=== PATIENT | male | born 1965 | race American Indian/Alaskan Native ===

== ENCOUNTER 2018-08-16 17:26 | Emergency (ER) | payer OTHER ==
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
[2018-08-16 19:44] VITALS: BP 136/89
== END 2018-08-16 19:20 | disposition home or self-care (01) ==
LOC: ED 17:26
DX: Z76.5 Malingerer [conscious simulation] (principal); Z59.0 Homelessness; F17.200 Nicotine dependence, unspecified, uncomplicated
CPT/HCPCS: 99283

== ENCOUNTER 2019-02-17 00:18 | Emergency (ER) | payer SELFPAY ==
[2019-02-17] MEDS ORDERED: ASPIRIN 325 MG TAB PO ONE (00:40)
[2019-02-17 01:17] LABS: Hemoglobin 13.1 gm/dl (11.8-15.2); Mean Corpuscular HGB Conc 34 % (32-34); Mean Corpuscular Volume 90 fl (84-94); Platelet Count 314 K/mm3 (140-440); Red Blood Count 4.36 M/mm3 (3.65-5.03); Red Cell Distribution Width 17.1 % (13.2-15.2)
--- NOTE | 2019-02-17 01:19 | Emergency Department Report ---
ED Psych HPI - General Chief Complaint: Chest Pain Stated Complaint: CHEST PAIN Time Seen by Provider: 02/17/19 01:03 Source: patient, EMS Mode of arrival: Ambulatory - History of Present Illness Initial Comments: Mr. Reynaga is a 53 yo male without significant medical history who presents with chest pain and attempt to harm himself. He developed two episodes of chest pain sharp central which dropped in to his knees. The episodes lasted several seconds. NOw resolved spontaneously. The chest pain occurred while arguing with his . He and his are in the middle of a divorce. He initially went to the hospital to be evaluated for chest pain. However he was asked to leave the emergency department when he insisted on smoking in the bathroom. He went home and trying beer. He also attempted to harm himself by drinking Drano. He drank a few sips of Drano. He is currently unemployed. He is a local company flatbed truck driver. He has been out of work for the past 4 months. He drinks 3 beers every other day. No history of depression. No history of previous suicide attempt. MD Complaint: suicidal ideation, feels depressed, other (attempt to drink Drano) -: Sudden, This evening Associated Psychiatric Symptoms: depression, suicidal ideation History of same: No Quality: constant Improves With: none Worsens With: none Context: recent alcohol abuse, not taking psychiatric, significant life stressor Associated Symptoms: other (chest pain) Treatments Prior to Arrival: none If Self Harm: admits thoughts of, has plan, has acted on plan, intentional overdose - Related Data Home Medications Medication Instructions Recorded Confirmed Last Taken Quetiapine Fumarate [SEROquel] 400 mg PO 02/17/19 02/17/19 22:00 Allergies Allergy/AdvReac Type Severity Reaction Status Date / Time No Known Allergies Allergy Unverified 06/26/18 08:23 ED Review of Systems ROS: Stated complaint: CHEST PAIN Other details as noted in HPI Comment: All other systems reviewed and negative Constitutional: denies: fever, malaise Cardiovascular: chest pain Psychiatric: suicidal thoughts ED Past Medical Hx - Past Medical History Previous Medical History?: No Hx Congestive Heart Failure: No Hx Diabetes: No Hx Asthma: No Hx COPD: No - Surgical History Past Surgical History?: No - Social History Smoking Status: Never Smoker Substance Use Type: Alcohol - Medications Home Medications: Home Medications Medication Instructions Recorded Confirmed Last Taken Type Quetiapine Fumarate [SEROquel] 400 mg PO 02/17/19 02/17/19 22:00 History ED Physical Exam - General Limitations: No Limitations General appearance: alert, in no apparent distress, other (appears comfortable) - Head Head exam: Present: atraumatic, normocephalic - Eye Eye exam: Present: normal appearance - ENT ENT exam: Present: mucous membranes moist - Neck Neck exam: Present: normal inspection, full ROM - Respiratory Respiratory exam: Present: normal lung sounds bilaterally. Absent: respiratory distress, wheezes, rales, rhonchi - Cardiovascular Cardiovascular Exam: Present: regular rate, normal rhythm, normal heart sounds, other (equal radial pulses). Absent: systolic murmur, diastolic murmur, rubs, gallop - GI/Abdominal GI/Abdominal exam: Present: soft, normal bowel sounds. Absent: distended, tenderness, guarding, rebound - Rectal Rectal exam: Present: deferred - Extremities Exam Extremities exam: Present: normal inspection - Neurological Exam Neurological exam: Present: alert, oriented X3 - Psychiatric Psychiatric exam: Present: normal affect, depressed - Skin Skin exam: Present: warm, dry, intact, normal color. Absent: rash ED Course Vital Signs 02/17/19 02/17/19 02/17/19 00:35 01:06 07:00 Temperature 97.9 F 98 F 98.2 F Pulse Rate 104 H 94 H 75 Respiratory 18 16 18 Rate Blood Pressure 139/90 Blood Pressure 136/86 116/90 [Left] Blood Pressure 143/86 [Right] O2 Sat by Pulse 96 98 97 Oximetry 02/17/19 02/17/19 02/17/19 14:00 19:34 22:44 Temperature 98.0 F 98.6 F 98.2 F Pulse Rate 89 90 87 Respiratory 18 18 18 Rate Blood Pressure Blood Pressure 147/88 [Left] Blood Pressure 150/95 152/87 [Right] O2 Sat by Pulse 98 97 100 Oximetry ED Medical Decision Making - Lab Data Result diagrams: 02/17/19 00:58 02/17/19 00:58 Laboratory Results - last 72 hr 02/17/19 02/17/19 02/17/19 00:58 00:58 00:58 WBC 7.9 RBC 4.36 Hgb 13.1 Hct 39.0 MCV 90 MCH 30 MCHC 34 RDW 17.1 H Plt Count 314 Lymph % (Auto) 18.8 [place] % (Auto) 12.3 H Eos % (Auto) 1.6 Baso % (Auto) 0.4 Lymph # 1.5 [place] # 1.0 H Eos # 0.1 Baso # 0.0 Seg Neutrophils % 66.9 Seg Neutrophils # 5.4 Sodium Potassium Chloride Carbon Dioxide Anion Gap BUN Creatinine Estimated GFR BUN/Creatinine Ratio Glucose Calcium Troponin T Salicylates < 0.3 L Acetaminophen < 5.0 L Plasma/Serum Alcohol 02/17/19 02/17/19 00:58 00:58 WBC RBC Hgb Hct MCV MCH MCHC RDW Plt Count Lymph % (Auto) [place] % (Auto) Eos % (Auto) Baso % (Auto) Lymph # [place] # Eos # Baso # Seg Neutrophils % Seg Neutrophils # Sodium 137 Potassium 4.1 Chloride 99.1 Carbon Dioxide 25 Anion Gap 17 BUN 8 L Creatinine 0.9 Estimated GFR > 60 BUN/Creatinine Ratio 9 Glucose 163 H Calcium 8.6 Troponin T < 0.010 Salicylates Acetaminophen Plasma/Serum Alcohol 0.10 H - EKG Data 02/17/19 01:16 Sinus tachycardia rate 100 beats a minute normal axis first degree AV block no ST elevation prolonged QTC no signs of ischemia - Radiology Data Radiology results: report reviewed - Medical Decision Making Mr. Reynaga presents with chest pain and suicide attempt. Chest pain atypical for ACS. I do not suspect acute emergent condition such as pulmonary embolism, dissection. Normal blood pressure with equal radial pulses. Equal blood pressure both arms. 2 sets of troponin negative. Suicide attempt by drinking Drano: Mr. Reynaga is high risk for repeat suicide attempt and further self-harm: recent divorce, middle-aged unemployment, Alcohol abuse. Placed on involuntary hold with 1013 protocol. Awaiting treatment recommendations by psychiatric team. Mr. Reynaga is medically clear for psychiatric care. No evidence of significant injury from Drano ingestion. No indication of acute coronary syndrome or acute emergent condition. Upon review of electronic record, Mr. Reynaga was evaluated for chest pain in June as well as suicidal ideation. Hospitalist service performed an ACS workup which was unremarkable. He was then transferred from inpatient services psychiatric facility. I have reviewed labs were generally within normal limits with the exception of elevated blood alcohol level. Mr. Reynaga was transferred to outside psychiatric facility. Critical care attestation.: If time is entered above; I have spent that time in minutes in the direct care of this critically ill patient, excluding procedure time. ED Disposition Clinical Impression: Chest pain, Suicidal ideation, Suicidal behavior Disposition: DC/TX-65 PSY HOSP/PSY UNIT Is pt being admited?: No Does the pt Need Aspirin: No Condition: Stable
[2019-02-17 01:32] LABS: BUN/Creatinine Ratio 9; Blood Urea Nitrogen 8 mg/dL (9-20); Calcium 8.6 mg/dL (8.4-10.2); Hemolysis Index 1
--- NOTE | 2019-02-17 01:33 | XRay Report ---
CHEST 1 VIEW 02/17/2019 1:09 AM INDICATION / CLINICAL INFORMATION: Chest Pain. COMPARISON: 06/26/18 FINDINGS: SUPPORT DEVICES: None. HEART / MEDIASTINUM: Heart is normal size. Mild prominence of right hilum is unchanged and likely rep resents pulmonary artery. LUNGS / PLEURA: No significant pulmonary or pleural abnormality. No pneumothorax. ADDITIONAL FINDINGS: No significant additional findings. IMPRESSION: 1. No acute findings. No change. Signer Name: Laxmi Cordoba MD Signed: 02/17/2019 1:29 AM Workstation Name: [id number]
[2019-02-17 01:38] LABS: Basophils % (Auto) 0.4 % (0.0-1.8); Eosinophils # (Auto) 0.1 K/mm3 (0.0-0.4); Eosinophils % (Auto) 1.6 % (0.0-4.3); Lymphocytes # (Auto) 1.5 K/mm3 (1.2-5.4); Lymphocytes % (Auto) 18.8 % (13.4-35.0); Monocytes % (Auto) 12.3 % (0.0-7.3)
[2019-02-17 02:54] LABS: Bilirubin,Urine NEG (Negative); Blood,Urine NEG (Negative); Color,Urine Yellow (Yellow); Protein,Urine <15 mg/dL mg/dL (Negative); Urobilinogen,Urine < 2.0 mg/dL (<2.0)
[2019-02-17 03:00] LABS: Amphetamine Screen,Urine PRESUMPTIVE NEGATIVE; Cannabinoid Screen,Urine PRESUMPTIVE NEGATIVE; Cocaine Screen,Urine PRESUMPTIVE NEGATIVE; Methadone Screen,Urine PRESUMPTIVE NEGATIVE; Opiate Screen,Urine PRESUMPTIVE NEGATIVE
[2019-02-17 03:13] LABS: Benzodiazepines Screen,Urine PRESUMPTIVE POSITIVE
[2019-02-17] MEDS ORDERED: MAGNESIUM HYDROXIDE (MOM) ORAL LIQD UDC PO ONE (09:48)
--- NOTE | 2019-02-17 14:03 | Consultation ---
History of Present Illness - Reason for Consult Consult date: 02/17/19 Reason for consult: Initial Psychiatric Evaluation - History of Present Psychiatric Illness Patient is a 53 year old male that presented to the emergency room with chest pain and after a suicide attempt. Patient has a PPHx of MDD. Today the patient is cooperative but anxious during the assessment. He verbalizes, " I'm here because I swallowed draino. I wanted to kill myself bec ause I was upset with my ." He reports appropriate appetite and energy. He reports difficulty with sleep and poor impulse control. He denies lack of motivation and anhedonia. Patient continues to endorse SI's with plan to overdose. Mood is labile. He denies A/VH's and delusions. Patient reports that he has been noncompliant with medication since August. Patient attempted to elope. Current Psychiatric Medications: Patient denies. Past Psychiatric History: MDD ( 05/2018); 2 previous inpatient psychiatric hospitalizations ( [facility]); no outpatient psychiatrist; no previous suicide attempts other than the most current. Past Medication Trials: Seroquel- effective. History of Alcohol/Drug Abuse: Alcohol- "every other day," 3 beers -" amount," last drink " 02/16/19" first drink- age 14. Patient denies drug use. UDS + benzodiazepine. History of Trauma Abuse: Patient denies trauma. Patient denies sexual, physical, and mental abuse. 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 Family History of Psychiatric Illness: Patient denies. Medications and Allergies Allergies Allergy/AdvReac Type Severity Reaction Status Date / Time No Known Allergies Allergy Unverified 06/26/18 08:23 Home Medications Medication Instructions Recorded Confirmed Last Taken Type No Known Home Medications [No 06/26/18 02/17/19 Unknown History Reported Home Medications] Mental Status Exam - Vital signs Last Vital Signs Temp 98.2 F 02/17/19 07:00 Pulse 75 02/17/19 07:00 Resp 18 02/17/19 07:00 BP 116/90 02/17/19 07:00 Pulse Ox 97 02/17/19 07:00 - Exam Narrative exam: Mental Status Exam Appearance: calm, cooperative Behavior: regular eye contact Speech: regular rate and tone Mood: " I feel good" Affect: labile Thought Process: circumstantial Thought Content: denies HI's, AVH's, and delusions; + SI's with plan to overdose Motor Activity: sitting up in bed Cognition: A/O x 3 Insight: variable Judgment: variable Results Result Diagrams: 02/17/19 00:58 02/17/19 00:58 Abnormal lab results 02/17/19 02/17/19 02/17/19 Range/Units 00:58 00:58 00:58 RDW 17.1 H (13.2-15.2) % [place] % (Auto) 12.3 H (0.0-7.3) % [place] # 1.0 H (0.0-0.8) K/mm3 BUN (9-20) mg/dL Glucose (75-100) mg/dL Salicylates < 0.3 L (2.8-20.0) mg/dL Acetaminophen < 5.0 L (10.0-30.0) ug/mL Plasma/Serum Alcohol (0-0.07) % 02/17/19 02/17/19 Range/Units 00:58 00:58 RDW (13.2-15.2) % [place] % (Auto) (0.0-7.3) % [place] # (0.0-0.8) K/mm3 BUN 8 L (9-20) mg/dL Glucose 163 H (75-100) mg/dL Salicylates (2.8-20.0) mg/dL Acetaminophen (10.0-30.0) ug/mL Plasma/Serum Alcohol 0.10 H (0-0.07) % All other labs normal. Assessment and Plan Assessment and plan: Impression: Mood Disorder. Today the patient is cooperative but anxious during the assessment. Mood is labile. He continues to endorse SI's with plan. He denies HI's and psychosis. Recommendation/Plan: 1. Continue 1013. 2. Start Seroquel 200mg po QHS mood/psychosis. Discussed possible metabolic side effects. Patient verbalizes understanding. Disposition: Patient will be referred to inpatient psychiatric services. Staffed with Dr. Elif Srinivasan.
[2019-02-17] MEDS ORDERED: QUEtiapine 100 MG TAB PO SCH (22:00)
[2019-02-17 22:45] VITALS: BP 152/87
== END 2019-02-18 00:21 ==
LOC: ED 00:18
DX: F39 Unspecified mood [affective] disorder (principal); R07.89 Other chest pain
CPT/HCPCS: 36415; 71045; 80048; 80307; 80320; 81001; 84484; 85025; 93005; 93010; G0480

== ENCOUNTER 2019-03-15 20:55 | Emergency (ER) | payer SELFPAY ==
--- NOTE | 2019-03-15 21:07 | Emergency Department Report ---
Blank Doc - Documentation Documentation: 53-year-old male that presents with CP and SOB. This initial assessment/diagnostic orders/clinical plan/treatment(s) is/are subject to change based on patient's health status, clinical progression and re- assessment by fellow clinical providers in the ED. Further treatment and workup at subsequent clinical providers discretion. Patient/guardians urged not to elope from the ED as their condition may be serious if not clinically assessed and managed. Initial orders include: 1- Patient sent to MAIN ED for further evaluation and treatment 2- labs 3- EKG 4- CXR
[2019-03-15 22:03] LABS: Basophils % (Auto) 0.4 % (0.0-1.8); Eosinophils # (Auto) 0.1 K/mm3 (0.0-0.4); Eosinophils % (Auto) 1.9 % (0.0-4.3); Hematocrit 42.6 % (35.5-45.6); Lymphocytes # (Auto) 1.3 K/mm3 (1.2-5.4); Lymphocytes % (Auto) 19.4 % (13.4-35.0); Mean Corpuscular HGB Conc 33 % (32-34); Mean Corpuscular Volume 89 fl (84-94); Monocytes # (Auto) 0.7 K/mm3 (0.0-0.8); Monocytes % (Auto) 10.2 % (0.0-7.3); Platelet Count 310 K/mm3 (140-440); Red Blood Count 4.81 M/mm3 (3.65-5.03); Red Cell Distribution Width 15.8 % (13.2-15.2)
[2019-03-15 22:06] LABS: Alanine Aminotransferase 26 units/L (7-56); Albumin 4.1 g/dL (3.9-5); BUN/Creatinine Ratio 14; Blood Urea Nitrogen 11 mg/dL (9-20); Calcium 8.7 mg/dL (8.4-10.2); Hemolysis Index 9
--- NOTE | 2019-03-15 22:09 | XRay Report ---
CHEST PA AND LATERAL VIEWS INDICATION: Chest Pain. COMPARISON: None FINDINGS: Support devices: None Heart: Normal Lungs/Pleura: No acute pulmonary or pleural findings. IMPRESSION: 1. No acute disease. Signer Name: Rocky Simpson MD Signed: 03/15/2019 10:05 PM Workstation Name: [id number]
[2019-03-15 22:15] LABS: INR 1.17 (0.87-1.13)
[2019-03-15 22:16] LABS: Partial Thromboplastin Time 25.7 Sec. (24.2-36.6)
[2019-03-15 23:56] LABS: Bilirubin,Urine NEG (Negative); Blood,Urine NEG (Negative); Color,Urine Yellow (Yellow); Mucus,Urine FEW /HPF; Protein,Urine <15 mg/dL mg/dL (Negative); Urobilinogen,Urine < 2.0 mg/dL (<2.0)
[2019-03-16 00:01] LABS: Amphetamine Screen,Urine PRESUMPTIVE NEGATIVE; Cannabinoid Screen,Urine PRESUMPTIVE NEGATIVE; Cocaine Screen,Urine PRESUMPTIVE NEGATIVE; Methadone Screen,Urine PRESUMPTIVE NEGATIVE; Opiate Screen,Urine PRESUMPTIVE NEGATIVE
[2019-03-16 00:16] LABS: Benzodiazepines Screen,Urine PRESUMPTIVE POSITIVE
--- NOTE | 2019-03-16 01:24 | Emergency Department Report ---
ED General Adult HPI - General Chief complaint: Chest Pain Stated complaint: CHEST PAIN/FALL Time Seen by Provider: 03/15/19 21:06 Source: patient Mode of arrival: Ambulatory Limitations: No Limitations - History of Present Illness Initial comments: 53 -year-old -[place] male presents to the ED with suicidal ideation, chest pain, drank draino, about seperating with prior to arrival. Admits to feeling depressed. Currently pain free. - Related Data Home Medications Medication Instructions Recorded Confirmed Last Taken Quetiapine Fumarate [SEROquel] 400 mg PO 02/17/19 02/17/19 22:00 Allergies Allergy/AdvReac Type Severity Reaction Status Date / Time No Known Allergies Allergy Verified 03/15/19 20:58 ED Review of Systems ROS: Stated complaint: CHEST PAIN/FALL Other details as noted in HPI Comment: All other systems reviewed and negative Cardiovascular: chest pain Psychiatric: anxiety, depression, suicidal thoughts ED Past Medical Hx - Past Medical History Previous Medical History?: Yes Hx Hypertension: Yes Hx Congestive Heart Failure: No Hx Diabetes: No Hx Asthma: No Hx COPD: No - Social History Smoking Status: Current Every Day Smoker Substance Use Type: Alcohol - Medications Home Medications: Home Medications Medication Instructions Recorded Confirmed Last Taken Type Quetiapine Fumarate [SEROquel] 400 mg PO 02/17/19 02/17/19 22:00 History ED Physical Exam - General Limitations: No Limitations General appearance: alert, in no apparent distress - Head Head exam: Present: atraumatic, normocephalic - Eye Eye exam: Present: normal appearance, PERRL, EOMI Pupils: Present: normal accommodation - ENT ENT exam: Present: normal exam, normal orophraynx - Neck Neck exam: Present: normal inspection - Cardiovascular Cardiovascular Exam: Present: regular rate, normal rhythm - GI/Abdominal GI/Abdominal exam: Present: soft - Neurological Exam Neurological exam: Present: alert, oriented X3, CN II-XII intact - Psychiatric Psychiatric exam: Present: depressed, anxious, suicidal ideation ED Course Vital Signs 03/15/19 03/15/19 03/16/19 21:04 23:00 01:00 Temperature 98.9 F 97.7 F Pulse Rate 103 H 83 Respiratory 20 20 18 Rate Blood Pressure 136/76 Blood Pressure 119/80 [Right] O2 Sat by Pulse 96 98 96 Oximetry ED Medical Decision Making - Lab Data Result diagrams: 03/15/19 21:20 03/15/19 21:20 - EKG Data -: EKG Interpreted by Me EKG shows normal: sinus rhythm Rate: normal - EKG Data Interpretation: nonspecific ST-T wave ghada - Medical Decision Making poison control was called, recommended obs pt for 6 hrs prior to med clearance. tolerating po without difficulty troponin neg x 2 medically clear for psych placement. Critical care attestation.: If time is entered above; I have spent that time in minutes in the direct care of this critically ill patient, excluding procedure time. ED Disposition Clinical Impression: Suicidal ideation Chest pain Qualifiers: Chest pain type: other chest pain Qualified Code(s): R07.89 - Other chest pain Disposition: DC/TX-65 PSY HOSP/PSY UNIT Is pt being admited?: No Does the pt Need Aspirin: No Condition: Stable Instructions: Chest Pain (ED)
--- NOTE | 2019-03-16 12:43 | Consultation ---
History of Present Illness - Reason for Consult Consult date: 03/16/19 Reason for consult: Mental Health Evaluation Requesting physician: MARISABEL CASTRO - Chief Complaint Chief complaint: "I didn't drink anything" - History of Present Psychiatric Illness 53 y.o. AA male who presented to the ER for ETOH and ingesting Drano. Today the patient was irritable during the assessment. He is adamant that he was intoxicated and "lied" about drinking Drano. I the provider had to redirect the patient several time to keep him on topic. The patient kept saying, "I didn't do anything." The assessment had to be terminated because of the patient's behavior. Medications and Allergies Allergies Allergy/AdvReac Type Severity Reaction Status Date / Time No Known Allergies Allergy Verified 03/15/19 20:58 Home Medications Medication Instructions Recorded Confirmed Last Taken Type Quetiapine Fumarate [SEROquel] 400 mg PO 02/17/19 02/17/19 22:00 History Past psychiatric history - Past Medical History Past Medical History: No medical history Past Surgical History: No surgical history - past Psychiatric treatment and history psychiatric treatment history: Denies a psy hx and fam psy hx. - Social History Social history: lives with family Mental Status Exam - Vital signs Last Vital Signs Temp 98 F 03/16/19 08:00 Pulse 103 H 03/16/19 08:00 Resp 20 03/16/19 08:00 BP 119/97 03/16/19 08:00 Pulse Ox 98 03/16/19 08:00 - Exam Narrative exam: MSE: Appearance: in hospital attire Behavior: regular eye contact Speech: regular rate and tone Mood: "okay" Affect: congruent to mood Thought Process: circumstantial Thought Content: denies SI/HI's and AVH's Motor Activity: sitting up in bed Cognition: A/O x3 Insight: variable Judgment: variable Results Result Diagrams: 03/15/19 21:20 03/15/19 21:20 Abnormal lab results 03/15/19 03/15/19 03/15/19 Range/Units 21:20 21:20 21:20 RDW 15.8 H (13.2-15.2) % [place] % (Auto) 10.2 H (0.0-7.3) % INR 1.17 H (0.87-1.13) Sodium 136 L (137-145) mmol/L Carbon Dioxide 18 L (22-30) mmol/L Glucose 138 H (75-100) mg/dL Total Protein 8.4 H (6.3-8.2) g/dL Salicylates (2.8-20.0) mg/dL Acetaminophen (10.0-30.0) ug/mL Plasma/Serum Alcohol (0-0.07) % 03/15/19 03/15/19 03/15/19 Range/Units 23:17 23:17 23:17 RDW (13.2-15.2) % [place] % (Auto) (0.0-7.3) % INR (0.87-1.13) Sodium (137-145) mmol/L Carbon Dioxide (22-30) mmol/L Glucose (75-100) mg/dL Total Protein (6.3-8.2) g/dL Salicylates < 0.3 L (2.8-20.0) mg/dL Acetaminophen < 5.0 L (10.0-30.0) ug/mL Plasma/Serum Alcohol 0.12 H (0-0.07) % All other labs normal. Assessment and Plan Assessment and plan: Impression: Alcohol Intoxication. Today the patient was irritable during the assessment. Per the record, the patient may have drink "Drano." Recommendation/Plan: Continue 1013 and gather collateral information to help det ermine proper treatment. Dispo: The patient was referred to inpatient psy services Staffed with Dr. Elif Srinivasan.
[2019-03-16 21:22] VITALS: BP 131/74
== END 2019-03-17 00:28 ==
LOC: ED 20:55 → EEVIPCON 20:55 → ED 03-17 00:28
DX: F10.129 Alcohol abuse with intoxication, unspecified (principal); R45.851 Suicidal ideations; R07.89 Other chest pain; Z79.899 Other long term (current) drug therapy
CPT/HCPCS: 36415; 71046; 80053; 80307; 80320; 81001; 84484; 85025; 85610; 85730; 93005; 93010; G0480

== ENCOUNTER 2019-04-17 18:17 | Emergency (ER) | payer SELFPAY ==
[2019-04-17] MEDS ORDERED: SODIUM CHLORIDE 0.9% 1000 ML 1,000 ML IV ONE (18:29)
--- NOTE | 2019-04-17 18:38 | Emergency Department Report ---
<JCARLOS PERSAUD - Last Filed: 04/17/19 19:43> ED Psych HPI - General Chief Complaint: Psych Stated Complaint: MH EVAL Time Seen by Provider: 04/17/19 18:27 Source: EMS Mode of arrival: Ambulatory - History of Present Illness Initial Comments: Mr. Reynaga is a 54 yo male with hx of HTN, depression and alcohol abuse who presents with alcohol intoxication and suicidal thoughts. Bystander called 911 for patient urinating in a parking lot obviously intoxicated. He reported drinking antifreeze yesterday in attempt to harm himself after an argument with his . He was seen in outside hospital recently. Unclear before or after the ingestion. He states that "I do not want to live anymore". "I am tired.". He drinks Heineken and vodka daily. He is currently unemployed. He lives with his . He drinks several alcoholic drinks today. I reviewed electronic record, he was transferred from the hospital service to a psychiatric facility for suicidal thoughts and plan to harm himself earlier this year. Last month he was evaluated by psychiatric team for reportedly drinking Drano. Complaint: suicidal ideation, feels depressed -: Gradual, days(s) (2) Associated Psychiatric Symptoms: depression, suicidal ideation History of same: Yes Quality: constant Improves With: none Worsens With: none Context: recent alcohol abuse, not taking psychiatric, significant life stressor Associated Symptoms: denies other symptoms If Self Harm: admits thoughts of, has acted on plan, intentional overdose - Related Data Home Medications Medication Instructions Recorded Confirmed Last Taken Quetiapine Fumarate [SEROquel] 400 mg PO QHS 02/17/19 04/18/19 02/17/19 22:00 Allergies Allergy/AdvReac Type Severity Reaction Status Date / Time No Known Allergies Allergy Verified 03/15/19 20:58 ED Review of Systems Comment: All other systems reviewed and negative Constitutional: denies: fever, malaise Respiratory: denies: cough Cardiovascular: denies: chest pain Gastrointestinal: denies: abdominal pain, nausea, vomiting ED Past Medical Hx - Past Medical History Previous Medical History?: Yes Hx Hypertension: Yes Hx Congestive Heart Failure: No Hx Diabetes: No Hx Asthma: No Hx COPD: No - Family History Family history: hypertension - Social History Smoking Status: Current Every Day Smoker Substance Use Type: Alcohol - Medications Home Medications: Home Medications Medication Instructions Recorded Confirmed Last Taken Type Quetiapine Fumarate [SEROquel] 400 mg PO QHS 02/17/19 04/18/19 02/17/19 22:00 History ED Physical Exam - General Limitations: No Limitations General appearance: alert, appears intoxicated, other - Head Head exam: Present: atraumatic, normocephalic - Eye Eye exam: Present: normal appearance - ENT ENT exam: Present: mucous membranes moist - Neck Neck exam: Present: normal inspection, full ROM - Respiratory Respiratory exam: Present: normal lung sounds bilaterally. Absent: respiratory distress, wheezes, rales, rhonchi - Cardiovascular Cardiovascular Exam: Present: regular rate, normal rhythm, normal heart sounds. Absent: systolic murmur, diastolic murmur, rubs, gallop - GI/Abdominal GI/Abdominal exam: Present: soft, normal bowel sounds. Absent: distended, tenderness, guarding, rebound - Rectal Rectal exam: Present: deferred - Extremities Exam Extremities exam: Present: normal inspection - Back Exam Back exam: Present: normal inspection - Neurological Exam Neurological exam: Present: alert, oriented X3, normal gait - Psychiatric Psychiatric exam: Present: depressed, flat affect - Skin Skin exam: Present: warm, dry, intact, normal color. Absent: rash ED Medical Decision Making - Lab Data Result diagrams: 04/17/19 18:40 04/17/19 18:40 - Medical Decision Making Mr. Aguilar is a 54-year-old male who presents with acute alcohol intoxication and suicidal ideation. He stated that he drank antifreeze in an attempt to harm himself. I have seen Mr. Reynaga on prior occasion for suicidal ideation plan to harm himself. Considering his middle-age, unemployed status, marital problems, alcohol abuse, h is high risk for intentional self-harm. He is placed on involuntary hold 1013 protocol. I have reviewed labs obtained. He is medically clear for psychiatric care. No evidence of toxic ingestion. Awaiting recommendations by psychiatric team. ED Disposition Clinical Impression: Acute alcohol intoxication, Acute depression, Suicidal ideation Disposition: DC- TO HOME OR SELFCARE Condition: Stable Additional Instructions: Please follow up at [facility] department. Referrals: PRIMARY CARE, [Primary Care Provider] - 3-[address] [facility] [Outside] - 3-5 Days Forms: Accompanied Note <LARS GATES - Last Filed: 04/19/19 10:21> ED Review of Systems ROS: Stated complaint: MH EVAL Other details as noted in HPI ED Course Vital Signs 04/17/19 04/18/19 04/18/19 18:33 01:00 09:00 Temperature 98.4 F 98.6 F 98.5 F Pulse Rate 96 H 84 87 Respiratory 17 20 17 Rate Blood Pressure 126/75 153/110 149/77 [Left] O2 Sat by Pulse 96 98 95 Oximetry 04/18/19 04/19/19 04/19/19 19:30 01:32 07:00 Temperature 98.6 F 98.4 F 98.0 F Pulse Rate 97 H 100 H 72 Respiratory 18 18 16 Rate Blood Pressure 154/91 136/94 145/89 [Left] O2 Sat by Pulse 97 96 97 Oximetry ED Medical Decision Making - Lab Data Result diagrams: 04/17/19 18:40 04/17/19 18:40 - Medical Decision Making Patient has been seen by mental health nurse practitioner. Respiratory states the patient does not meet the criteria for 1013 that he recommends patient to follow up outpatient at [facility] department. Patient will be discharged in stable condition and to follow up at [facility] department. Critical care attestation.: If time is entered above; I have spent that time in minutes in the direct care of this critically ill patient, excluding procedure time. ED Disposition Is pt being admited?: No Does the pt Need Aspirin: No
[2019-04-17 18:50] LABS: Basophils # (Auto) 0.1 K/mm3 (0.0-0.1); Basophils % (Auto) 0.6 % (0.0-1.8); Eosinophils # (Auto) 0.2 K/mm3 (0.0-0.4); Eosinophils % (Auto) 1.6 % (0.0-4.3); Hematocrit 44.9 % (35.5-45.6); Hemoglobin 14.9 gm/dl (11.8-15.2); Lymphocytes # (Auto) 1.8 K/mm3 (1.2-5.4); Lymphocytes % (Auto) 17.5 % (13.4-35.0); Mean Corpuscular HGB Conc 33 % (32-34); Mean Corpuscular Volume 89 fl (84-94); Monocytes # (Auto) 1.3 K/mm3 (0.0-0.8); Monocytes % (Auto) 12.5 % (0.0-7.3); Platelet Count 291 K/mm3 (140-440); Red Blood Count 5.02 M/mm3 (3.65-5.03)
[2019-04-17 19:08] LABS: Alanine Aminotransferase 14 units/L (7-56); Albumin 3.7 g/dL (3.9-5); BUN/Creatinine Ratio 16; Blood Urea Nitrogen 11 mg/dL (9-20); Calcium 8.7 mg/dL (8.4-10.2); Hemolysis Index 11
[2019-04-17 19:13] LABS: Bilirubin,Urine NEG (Negative); Blood,Urine NEG (Negative); Color,Urine Colorless (Yellow); Mucus,Urine FEW /HPF; Protein,Urine <15 mg/dL mg/dL (Negative); Urobilinogen,Urine < 2.0 mg/dL (<2.0)
[2019-04-17 19:18] LABS: WBC,Urine < 1.0 /HPF (0.0-6.0)
[2019-04-17 19:20] LABS: Amphetamine Screen,Urine PRESUMPTIVE NEGATIVE; Benzodiazepines Screen,Urine PRESUMPTIVE NEGATIVE; Cannabinoid Screen,Urine PRESUMPTIVE NEGATIVE; Cocaine Screen,Urine PRESUMPTIVE NEGATIVE; Methadone Screen,Urine PRESUMPTIVE NEGATIVE; Opiate Screen,Urine PRESUMPTIVE NEGATIVE
[2019-04-17] MEDS ORDERED: SODIUM CHLORIDE 0.9% 1000 ML 1,000 ML ONE (22:00)
--- NOTE | 2019-04-18 10:49 | Consultation ---
History of Present Illness - Reason for Consult Consult date: 04/18/19 Reason for consult: Mental Health Evaluation Requesting physician: JCARLOS PERSAUD - Chief Complaint Chief complaint: "I was drunk" - History of Present Psychiatric Illness 54 y.o. AA male who presented to the ER for SI's and etoh. Today the patient was calm and cooperative during the assessment. He stated that he do not remember the [facility] about why he was brought to the ER other than being "drunk" per the patient. The patient presented to the ER last Feb 2019 for similar behavior and was transferred to a mental health facility. He stated that he starting drinking (etoh) when he was 14 yrs old. He stated that he feel "depressed" because his sister recently. Also, he stated that he is having marital issues. He rate his depression 5/10, with 10 being the worse. He denies a poor appetite, but acknowledged erratic sleep. He denies recreational drug use. Medications and Allergies Allergies Allergy/AdvReac Type Severity Reaction Status Date / Time No Known Allergies Allergy Verified 03/15/19 20:58 Home Medications Medication Instructions Recorded Confirmed Last Taken Type Quetiapine Fumarate [SEROquel] 400 mg PO QHS 02/17/19 04/18/19 02/17/19 22:00 History Past psychiatric history - Past Medical History Past Medical History: No medical history Past Surgical History: No surgical history - past Psychiatric treatment and history psychiatric treatment history: Hx of alcohol abuse. Denies a fam psy hx. - Social History Social history: lives with family Mental Status Exam - Vital signs Last Vital Signs Temp 98.5 F 04/18/19 09:00 Pulse 87 04/18/19 09:00 Resp 17 04/18/19 09:00 BP 149/77 04/18/19 09:00 Pulse Ox 95 04/18/19 09:00 - Exam Narrative exam: MSE: Appearance: calm, cooperative Behavior: regular eye contact Speech: regular rate and tone Mood: "okay" Affect: congruent to mood Thought Process: circumstantial Thought Content: denies SI/HI's and AVH's Motor Activity: sitting up in bed Cognition: A/O x3 Insight: variable Judgment: poor Results Result Diagrams: 04/17/19 18:40 04/17/19 18:40 Abnormal lab results 04/17/19 04/17/19 04/17/19 Range/Units 18:39 18:39 18:39 [place] % (Auto) (0.0-7.3) % [place] # (0.0-0.8) K/mm3 Sodium (137-145) mmol/L Carbon Dioxide (22-30) mmol/L Creatinine (0.8-1.5) mg/dL Glucose (75-100) mg/dL Albumin (3.9-5) g/dL Salicylates < 0.3 L (2.8-20.0) mg/dL Acetaminophen < 5.0 L (10.0-30.0) ug/mL Plasma/Serum Alcohol 0.19 H (0-0.07) % 04/17/19 04/17/19 Range/Units 18:40 18:40 [place] % (Auto) 12.5 H (0.0-7.3) % [place] # 1.3 H (0.0-0.8) K/mm3 Sodium 133 L (137-145) mmol/L Carbon Dioxide 19 L (22-30) mmol/L Creatinine 0.7 L (0.8-1.5) mg/dL Glucose 155 H (75-100) mg/dL Albumin 3.7 L (3.9-5) g/dL Salicylates (2.8-20.0) mg/dL Acetaminophen (10.0-30.0) ug/mL Plasma/Serum Alcohol (0-0.07) % All other labs normal. Assessment and Plan Assessment and plan: Impression: MDD. Alcohol Use DO. Today the patient was calm during the assessment. Per the record, the patient may have drink "Antifreeze." DDx: Alcohol Induced Mood DO Recommendation/Plan: Continue 1013 and gather collateral information. Start Zoloft 50 mg PO daily for depression and Melatonin 5 mg PO HS for sleep. Discussed possible suicidality/medication induced deepthi with the patient reference Zoloft, he verbalized understanding. Dispo: The patient was referred to inpatient psy services Will staff with Dr. Elif Srinivasan.
[2019-04-18] MEDS: SERTRALINE 50 MG TAB PO SCH (12:17)
[2019-04-18] MEDS ORDERED: MELATONIN 5 MG TAB PO SCH (22:00)
[2019-04-19 08:32] VITALS: BP 145/89
--- NOTE | 2019-04-19 08:39 | Progress Note ---
Subjective - Reason for Consult Consult date: 04/19/19 Reason for consult: Psychiatry Follow-up - Chief Complaint Chief complaint: "I want do this again" 54 y.o. AA male who presented to the ER for SI's and etoh. Today the patient was calm and cooperative during the assessment. Per collateral information from the patient' s Jaclyn Valentino at [phone]. She stated that the patient was intoxicated when he stated that he drink antifreeze. She denies any previous suicide attempt by the patient. She stated that her has a hx of alcoholism. She confirmed that the patient's sister recently . The patient denies SI/HI's and AVH's. He denies any side effects of his medication. Mental Status Exam - Vital signs Last Vital Signs Temp 98.0 F 04/19/19 07:00 Pulse 72 04/19/19 07:00 Resp 16 04/19/19 07:00 BP 145/89 04/19/19 07:00 Pulse Ox 97 04/19/19 07:00 - Exam Narrative exam: MSE: Appearance: calm, cooperative Behavior: regular eye contact Speech: regular rate and tone Mood: "okay" Affect: congruent to mood Thought Process: linear Thought Content: denies SI/HI's and AVH's Motor Activity: sitting up in bed Cognition: A/O x3 Insight: fair Judgment: fair Assessment and Plan Impression: MDD. Alcohol Use DO. Today the patient was calm during the assessment. The patient is no threat to self. DDx: Alcohol Induced Mood DO Recommendation/Plan: Rescind 1013 and continue Zoloft 50 mg PO daily for depression. Discussed possible suicidality/medication induced deepthi with the patient reference Zoloft, he verbalized understanding. Discussed the importance to abstain from alcohol consumption (etoh) with the patient, he verbalized understanding. Dispo: The patient can follow up with [facility] for outpatient psy/rehab services. Will staff with Dr. Elif Srinivasan.
[2019-04-19] MEDS: SERTRALINE 50 MG TAB PO SCH (10:23)
--- NOTE | 2019-04-20 08:34 | Consultation ---
History of Present Illness - Reason for Consult Consult date: 04/20/19 Reason for consult: Mental Health Evaluation Requesting physician: JCARLOS PERSAUD - Chief Complaint Chief complaint: "I want do this again" 54 y.o. AA male who presented to the ER for SI's and etoh. Today the patient was calm and cooperative during the assessment. Per collateral information from the patient' s Jaclyn Valentino at [phone]. She stated that the patient was intoxicated when he stated that he drink antifreeze. She denies any previous s uicide attempt by the patient. She stated that her has a hx of alcoholism. She confirmed that the patient's sister recently . The patient denies SI/HI's and AVH's. He denies any side effects of his medication. Medications and Allergies Allergies Allergy/AdvReac Type Severity Reaction Status Date / Time No Known Allergies Allergy Verified 03/15/19 20:58 Home Medications Medication Instructions Recorded Confirmed Last Taken Type Quetiapine Fumarate [SEROquel] 400 mg PO QHS 02/17/19 04/20/19 02/17/19 22:00 History Mental Status Exam - Vital signs Last Vital Signs Temp 98.0 F 04/19/19 07:00 Pulse 72 04/19/19 07:00 Resp 16 04/19/19 07:00 BP 145/89 04/19/19 07:00 Pulse Ox 97 04/19/19 07:00 Results Result Diagrams: 04/17/19 18:40 04/17/19 18:40 All other labs normal.
== END 2019-04-19 10:59 | disposition home or self-care (01) ==
LOC: ED 18:17
DX: F32.9 Major depressive disorder, single episode, unspecified (principal); F10.929 Alcohol use, unspecified with intoxication, unspecified; I10 Essential (primary) hypertension; F17.200 Nicotine dependence, unspecified, uncomplicated
CPT/HCPCS: 36415; 80053; 80307; 81001; 85025; 99284; J7030; 80320; G0480

== ENCOUNTER 2019-04-19 20:51 | Emergency (ER) | payer SELFPAY ==
[2019-04-19] MEDS ORDERED: ASPIRIN 325 MG TAB PO ONE (21:35)
[2019-04-19 21:57] LABS: Basophils # (Auto) 0.1 K/mm3 (0.0-0.1); Basophils % (Auto) 0.7 % (0.0-1.8); Eosinophils # (Auto) 0.1 K/mm3 (0.0-0.4); Eosinophils % (Auto) 1.2 % (0.0-4.3); Hemoglobin 15.2 gm/dl (11.8-15.2); Lymphocytes # (Auto) 1.4 K/mm3 (1.2-5.4); Lymphocytes % (Auto) 15.5 % (13.4-35.0); Mean Corpuscular HGB Conc 34 % (32-34); Mean Corpuscular Volume 90 fl (84-94); Monocytes # (Auto) 1.1 K/mm3 (0.0-0.8); Platelet Count 321 K/mm3 (140-440); Red Blood Count 5.03 M/mm3 (3.65-5.03); Red Cell Distribution Width 14.5 % (13.2-15.2)
[2019-04-19 22:09] LABS: BUN/Creatinine Ratio 16; Blood Urea Nitrogen 11 mg/dL (9-20); Calcium 8.7 mg/dL (8.4-10.2); Hemolysis Index 9
--- NOTE | 2019-04-19 23:38 | XRay Report ---
CHEST 1 VIEW INDICATION / CLINICAL INFORMATION: Chest Pain. COMPARISON: None available. FINDINGS: SUPPORT DEVICES: None. HEART / MEDIASTINUM: No significant abnormality. LUNGS / PLEURA: No significant pulmonary or pleural abnormality. No pneumothorax. ADDITIONAL FINDINGS: No significant additional findings. IMPRESSION: 1. No acute findings. Signer Name: Benedict Morrison MD Signed: 04/19/2019 11:34 PM Workstation Name: [id number]
--- NOTE | 2019-04-19 23:59 | Emergency Department Report ---
ED Psych HPI - General Chief Complaint: Chest Pain Stated Complaint: CHEST PAIN Time Seen by Provider: 04/19/19 23:42 Source: patient Mode of arrival: Ambulatory - History of Present Illness Initial Comments: Mr. Reynaga is a 54-year-old gentleman with history of alcohol abuse, depression, hypertension who presents with persistent chest pain and suicidal ideation. Charge nurse informed me that Mr. Reynaga had not left the waiting room since he was discharged from this emergency Department this morning. He subsequently informed triage nurse this evening that he stepped in front of an 18 [address]go truck in order to harm himself. He has had chest pain for several months. The pain is not associated with exertion or movement. He has difficulty describing the nature of the chest pain. He states that "I need to go to rehabilitation". Mr. Simon has had several ED encounters for chest pain. Earlier this year he was admitted to the hospital service for chest pain as well as suicidal thoughts. According to electronic medical record, Cardiac evaluation has been n egative for acute disease thus far. According to psychiatric consultation documentation from this morning's evaluation, 1013 was rescinded. Zoloft for depression once encouraged. He was referred to [facility] for outpatient psychiatric and rehabilitation service. He currently just desires to sleep in a dark room. MD Complaint: suicidal ideation, feels depressed -: Gradual, days(s) (several days) Associated Psychiatric Symptoms: depression, suicidal ideation History of same: Yes Quality: constant Improves With: none Worsens With: none Context: recent alcohol abuse Associated Symptoms: other (chest pain) Treatments Prior to Arrival: placed on mental he (just released this morning) If Self Harm: admits thoughts of, has plan, has acted on plan - Related Data Home Medications Medication Instructions Recorded Confirmed Last Taken Quetiapine Fumarate [SEROquel] 400 mg PO QHS 02/17/19 04/20/19 02/17/19 22:00 Allergies Allergy/AdvReac Type Severity Reaction Status Date / Time No Known Allergies Allergy Verified 03/15/19 20:58 ED Review of Systems ROS: Stated complaint: CHEST PAIN Other details as noted in HPI Comment: All other systems reviewed and negative Constitutional: denies: fever, malaise Respiratory: denies: cough Cardiovascular: chest pain Gastrointestinal: denies: abdominal pain, nausea, vomiting Psychiatric: depression, suicidal thoughts ED Past Medical Hx - Past Medical History Previous Medical History?: Yes Hx Hypertension: Yes Hx Congestive Heart Failure: No Hx Diabetes: No Hx Asthma: No Hx COPD: No - Surgical History Past Surgical History?: No - Social History Smoking Status: Never Smoker Substance Use Type: Alcohol - Medications Home Medications: Home Medications Medication Instructions Recorded Confirmed Last Taken Type Quetiapine Fumarate [SEROquel] 400 mg PO QHS 02/17/19 04/20/19 02/17/19 22:00 History ED Physical Exam - General Limitations: No Limitations General appearance: alert, in no apparent distress - Head Head exam: Present: atraumatic, normocephalic - Eye Eye exam: Present: normal appearance - ENT ENT exam: Present: mucous membranes moist - Neck Neck exam: Present: normal inspection, full ROM - Respiratory Respiratory exam: Present: normal lung sounds bilaterally. Absent: respiratory distress, wheezes, rales, rhonchi - Cardiovascular Cardiovascular Exam: Present: regular rate, normal rhythm, normal heart sounds. Absent: systolic murmur, diastolic murmur, rubs, gallop - GI/Abdominal GI/Abdominal exam: Present: soft, normal bowel sounds. Absent: distended, tenderness, guarding, rebound - Rectal Rectal exam: Present: deferred - Extremities Exam Extremities exam: Present: normal inspection - Neurological Exam Neurological exam: Present: alert, oriented X3 - Psychiatric Psychiatric exam: Present: normal affect, depressed, suicidal ideation - Skin Skin exam: Present: warm, dry, intact, normal color. Absent: rash ED Course Vital Signs 04/19/19 04/19/19 04/20/19 21:01 21:34 00:14 Temperature 97.9 F 97.9 F 98.0 F Pulse Rate 109 H 112 H 103 H Respiratory 18 18 18 Rate Blood Pressure 138/87 138/87 Blood Pressure 127/80 [Left] O2 Sat by Pulse 96 100 96 Oximetry 04/20/19 04/20/19 04/20/19 00:15 01:59 02:28 Temperature 98.1 F Pulse Rate 103 H 96 H 93 H Respiratory 16 16 Rate Blood Pressure Blood Pressure 124/71 131/85 [Left] O2 Sat by Pulse 98 96 Oximetry 04/20/19 04/20/19 04/20/19 08:05 14:08 16:00 Temperature 98.4 F 98.6 F 97.7 F Pulse Rate 82 63 85 Respiratory Rate Blood Pressure Blood Pressure 103/66 145/88 156/91 [Left] O2 Sat by Pulse 98 99 98 Oximetry 04/20/19 04/21/19 04/21/19 20:15 01:13 08:00 Temperature 98.6 F 97.9 F 97.9 F Pulse Rate 87 76 72 Respiratory 20 22 18 Rate Blood Pressure Blood Pressure 158/89 142/72 148/72 [Left] O2 Sat by Pulse 98 97 93 Oximetry 04/21/19 04/22/19 20:10 01:30 Temperature 98.0 F 98.3 F Pulse Rate 64 79 Respiratory 20 18 Rate Blood Pressure Blood Pressure 140/77 109/91 [Left] O2 Sat by Pulse 98 97 Oximetry ED Medical Decision Making - Lab Data Result diagrams: 04/19/19 21:40 04/19/19 21:40 Laboratory Results - last 24 hr 04/19/19 04/19/19 21:40 21:40 WBC 9.1 RBC 5.03 Hgb 15.2 Hct 45.0 MCV 90 MCH 30 MCHC 34 RDW 14.5 Plt Count 321 Lymph % (Auto) 15.5 [place] % (Auto) 12.0 H Eos % (Auto) 1.2 Baso % (Auto) 0.7 Lymph # 1.4 [place] # 1.1 H Eos # 0.1 Baso # 0.1 Seg Neutrophils % 70.6 H Seg Neutrophils # 6.4 Sodium 133 L Potassium 3.9 Chloride 97.2 L Carbon Dioxide 17 L Anion Gap 23 BUN 11 Creatinine 0.7 L Estimated GFR > 60 BUN/Creatinine Ratio 16 Glucose 144 H Calcium 8.7 Troponin T < 0.010 - EKG Data Interpretation: no acute changes 04/19/19 23:51 EKG obtained 2106 Sinus tachycardia rate 100 bpm normal axis prolonged IA intervals normal QT interval no ST elevation nonspecific T wave pattern no ischemic changes - Radiology Data Radiology results: report reviewed cxr: NAP - Medical Decision Making 1. SI with recent evaluation: 1013 protocol instituted with appropriate precautions, Mr. Reynaga has not been amenable to outpatient care, awaiting to psychiatric recommendations 2. chest pain recurrent atypical for ACS I do not suspect emergenct cause such as PE, pericarditis, dissection, PTX/PNA ruled out by CXR 3. alcohol abuse: [facility] protocol ordered Mr. Reynaga is medically clear for psychiatric care Critical care attestation.: If time is entered above; I have spent that time in minutes in the direct care of this critically ill patient, excluding procedure time. ED Disposition Clinical Impression: Acute depression, Suicidal ideation, Chest pain, Alcohol dependence Disposition: DC/TX-65 PSY HOSP/PSY UNIT Is pt being admited?: No Does the pt Need Aspirin: No Condition: Stable
[2019-04-20] MEDS ORDERED: LORazepam 2 MG TAB PO PRN (00:01)
[2019-04-20] MEDS ORDERED: LORazepam 2 MG/ML VIAL IV PRN (00:01)
[2019-04-20] MEDS ORDERED: chlordiazePOXIDE 25 MG CAP PO PRN (00:01)
[2019-04-20 03:25] LABS: Bilirubin,Urine NEG (Negative); Blood,Urine NEG (Negative); Color,Urine Yellow (Yellow); Mucus,Urine FEW /HPF; Protein,Urine <15 mg/dL mg/dL (Negative)
[2019-04-20 03:32] LABS: Amphetamine Screen,Urine PRESUMPTIVE NEGATIVE; Benzodiazepines Screen,Urine PRESUMPTIVE NEGATIVE; Cannabinoid Screen,Urine PRESUMPTIVE NEGATIVE; Cocaine Screen,Urine PRESUMPTIVE NEGATIVE; Methadone Screen,Urine PRESUMPTIVE NEGATIVE; Opiate Screen,Urine PRESUMPTIVE NEGATIVE
--- NOTE | 2019-04-20 08:53 | Consultation ---
History of Present Illness - Reason for Consult Consult date: 04/20/19 Reason for consult: Mental Health Evaluation Requesting physician: JCARLOS PERSAUD - Chief Complaint Chief complaint: "I need help" - History of Present Psychiatric Illness 54 y.o. AA male who presented to the ER for SI's. This patient is known to me. The patient was discharged yesterday and signed back in gesturing SI's. Today the patient was guarded during the assessment. He would only state that he need inpatient psy placement for SI's. Several attempts was made to engage the patient about his crisis, but was unsuccessful. Medications and Allergies Allergies Allergy/AdvReac Type Severity Reaction Status Date / Time No Known Allergies Allergy Verified 03/15/19 20:58 Home Medications Medication Instructions Recorded Confirmed Last Taken Type Quetiapine Fumarate [SEROquel] 400 mg PO QHS 02/17/19 04/20/19 02/17/19 22:00 History Active Meds: Active Medications Chlordiazepoxide HCl (Librium) 50 mg PO Q1H PRN PRN Reason: CIWA-Ar 8-15 Lorazepam (Ativan) 2 mg IV Q1H PRN PRN Reason: CIWA-Ar 8-15 Lorazepam (Ativan) 2 mg PO Q1H PRN PRN Reason: CIWA-Ar 8-15 Past psychiatric history - Past Medical History Past Medical History: No medical history Past Surgical History: No surgical history - past Psychiatric treatment and history psychiatric treatment history: Hx of alcohol abuse/depression. Denies a fam psy hx. - Social History Social history: other (Homeless) Mental Status Exam - Vital signs Last Vital Signs Temp 98.4 F 04/20/19 08:05 Pulse 82 04/20/19 08:05 Resp 16 04/20/19 02:28 BP 103/66 04/20/19 08:05 Pulse Ox 98 04/20/19 08:05 - Exam Narrative exam: MSE: Appearance: in hospital attire Behavior: regular eye contact Speech: regular rate and tone Mood: guarded Affect: congruent to mood Thought Process: unable to assess Thought Content: unable to assess Motor Activity: sitting up in bed Cognition: A/O x3 Insight: unable to assess Judgment: poor Results Result Diagrams: 04/19/19 21:40 04/19/19 21:40 Abnormal lab results 04/19/19 04/19/1919 Range/Units 21:40 21:40 00:50 [place] % (Auto) 12.0 H (0.0-7.3) % [place] # 1.1 H (0.0-0.8) K/mm3 Seg Neutrophils % 70.6 H (40.0-70.0) % Sodium 133 L (137-145) mmol/L Chloride 97.2 L (98-107) mmol/L Carbon Dioxide 17 L (22-30) mmol/L Creatinine 0.7 L (0.8-1.5) mg/dL Glucose 144 H (75-100) mg/dL Salicylates < 0.3 L (2.8-20.0) mg/dL Acetaminophen (10.0-30.0) ug/mL 04/20/19 Range/Units 00:50 [place] % (Auto) (0.0-7.3) % [place] # (0.0-0.8) K/mm3 Seg Neutrophils % (40.0-70.0) % Sodium (137-145) mmol/L Chloride (98-107) mmol/L Carbon Dioxide (22-30) mmol/L Creatinine (0.8-1.5) mg/dL Glucose (75-100) mg/dL Salicylates (2.8-20.0) mg/dL Acetaminophen < 5.0 L (10.0-30.0) ug/mL All other labs normal. Assessment and Plan Assessment and plan: Impression: MDD. Alcohol Use DO. Today the patient was calm, but guarded during the assessment. No acute withdrawals noted (etoh). Recommendation/Plan: Continue 1013 and start Zoloft 50 mg PO daily for depression. Discussed possible suicidality/medication induced deepthi with the patient reference Zoloft, he verbalized understanding. Dispo: The patient was referred to inpatient psy services. Will staff with Dr. Elif rSinivasan.
[2019-04-20] MEDS: SERTRALINE 50 MG TAB PO SCH (09:49)
--- NOTE | 2019-04-21 09:56 | Progress Note ---
Subjective - Reason for Consult Consult date: 04/21/19 Reason for consult: Mental Health Evaluation - Chief Complaint Chief complaint: History of Present Illness: The patient is 54 year old unemployed male who has been for 24 years.The patient states he had thoughts of suicide due to being depressed, problems at home (arguments with ), and financial worries. The patient states that his feelings are borderline this morning, sleep so-so and his appetite is good. The patient denies being suicidal this morning but still wants to be sent to [facility] so that he can get help with his drinking problem. He denies HI/AVH/Paranoia. Substance Abuse history: Alcohol Alcohol The patient states he drinks a pint every other day Tobacco NONE Family Psychiatric History: None reported or documented Social History Lives with but may be homeless due to argument with . Access to guns/weapons: No Education: 2 years College History of Abuse: No Legal troubles: No Mental Status Exam - Vital signs Last Vital Signs Temp 97.9 F 04/21/19 08:00 Pulse 72 04/21/19 08:00 Resp 18 04/21/19 08:00 BP 148/72 04/21/19 08:00 Pulse Ox 93 04/21/19 08:00 - Exam Orientation: time, place, person Affect: depressed Mood: calm, relaxed Thought Process: Intact Perceptions: none Speech: normal rate and pattern Concentration: focused Motor activity: normal Memory: Intact Interaction: cooperative Assessment and Plan - Patient Problems (1) Alcohol use disorder, severe, dependence Current Visit: Yes Status: Acute Plan to address problem: Continue 1013, CIWA, Zoloft 50mg PO daily for depression. Discontinue IV Lorazepam and start Librium 25mg bid and 25mg q8h prn for alcohol withdrawal Discontinue LOS as patient denies being suicidal Trazodone 50mg qhs prn insomnia Provide resources for Substance Abuse treatment and make referrals. 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
[2019-04-21] MEDS: SERTRALINE 50 MG TAB PO SCH (10:10)
[2019-04-21] MEDS ORDERED: chlordiazePOXIDE 25 MG CAP PO PRN (14:24)
[2019-04-21] MEDS ORDERED: traZODone 50 MG TAB PO PRN (14:25)
[2019-04-21] MEDS ORDERED: chlordiazePOXIDE 25 MG CAP PO ONE (15:00)
[2019-04-22 02:39] VITALS: BP 109/91
== END 2019-04-22 05:20 ==
LOC: ED 20:51 → EEVIPCON 20:51 → ED 04-22 05:20
DX: F10.129 Alcohol abuse with intoxication, unspecified (principal)
CPT/HCPCS: 36415; 71045; 80048; 80307; 80320; 81001; 84484; 85025; 93005; 93010; G0480